=== PATIENT | female | born 1980 | race African-American/Black ===

== ENCOUNTER 2019-12-13 21:25 | Emergency (ER) | payer SELFPAY ==
[~2019-12-13] VITALS: Ht 177 cm; Wt 77.0 kg
--- NOTE | 2019-12-13 21:42 | ED General ---
General Stated Complaint: VOMITTING Source of Information: Patient Exam Limitations: No Limitations (KARL LUCAS APRN) History of Present Illness Date Seen by Provider: Dec 13, 2019 Time Seen by Provider: 21:38 Initial Comments To ER by EMS with reports of nausea vomiting and diffuse abdominal pain and cramping. He was diagnosed last month and a different facility with hyperemesis cannabinoids syndrome. She states that she didn't believe them at first, she drove [employer] over the weekend and bought a vape pen with marijuana in it. Beginning yesterday she developed some uncontrollable nausea and vomiting. EMS gave 4 mg of Zofran in route to the hospital, nausea is still present but better, abdominal pain persists and is diffuse and not well localized. She states that hot showers help with this pain/nausea and vomiting. She is currently living out of her van. Timing/Duration: 1-2 Days Severity: Moderate, Severe Associated Systoms: Nausea/Vomiting (KARL LUCAS APRN) Allergies and Home Medications Allergies Coded Allergies: promethazine (Verified Allergy, Unknown, 12/13/19) Patient Home Medication List Home Medication List Reviewed: Yes (KARL LUCAS APRN) Review of Systems Review of Systems Constitutional: see HPI EENTM: see HPI Respiratory: no symptoms reported Cardiovascular: no symptoms reported Gastrointestinal: abdominal pain, nausea, vomiting Genitourinary: no symptoms reported Musculoskeletal: no symptoms reported Skin: no symptoms reported Psychiatric/Neurological: No Symptoms Reported Hematologic/Lymphatic: No Symptoms Reported (KARL LUCAS APRN) Past Twgywyw-Svnwtm-Opgbfe Hx Patient Social History Recent Foreign Travel: No Contact w/Someone Who Travel: No (KARL LUCAS APRN) Physical Exam Vital Signs Vital Signs - First Documented 12/13/19 21:25 Temp 37.0 Pulse 51 Resp 17 B/P (MAP) 182/104 (130) (WINTER BLOUNT MD) Vital Signs Capillary Refill : (KARL LUCAS APRN) Height, Weight, BMI Height: '" Weight: lbs. oz. kg; BMI Method: General Appearance: No Apparent Distress, WD/WN Eyes: Bilateral Eye Normal Inspection, Bilateral Eye PERRL, Bilateral Eye EOMI Respiratory: Lungs Clear, Normal Breath Sounds, No Accessory Muscle Use, No Res piratory Distress Cardiovascular: Regular Rate, Rhythm, Normal Peripheral Pulses Gastrointestinal: Non Tender, Soft Extremity: Normal Capillary Refill, Normal Inspection Neurologic/Psychiatric: Alert, Oriented x3, No Motor/Sensory Deficits Skin: Normal Color, Warm/Dry (KARL LUCAS APRN) Progress/Results/Core Measures Suspected Sepsis SIRS Temperature: Pulse: Respiratory Rate: Laboratory Tests 12/13/19 21:30: White Blood Count 7.5 Blood Pressure / Mean: Laboratory Tests 12/13/19 21:30: Creatinine 0.81, Platelet Count 230, Total Bilirubin 0.5 (KARL LUCAS APRN) Results/Orders Lab Results Laboratory Tests Test 12/13/19 21:30 12/13/19 23:00 Range/Units White Blood Count 7.5 4.3-11.0 10^3/uL Red Blood Count 4.05 L 4.35-5.85 10^6/uL Hemoglobin 13.5 11.5-16.0 G/DL Hematocrit 39 35-52 % Mean Corpuscular Volume 97 80-99 FL Mean Corpuscular Hemoglobin 33 25-34 PG Mean Corpuscular Hemoglobin Concent 35 32-36 G/DL Red Cell Distribution Width 12.2 10.0-14.5 % Platelet Count 230 130-400 10^3/uL Mean Platelet Volume 10.0 7.4-10.4 FL Neutrophils (%) (Auto) 75 42-75 % Lymphocytes (%) (Auto) 16 12-44 % Monocytes (%) (Auto) 9 0-12 % Eosinophils (%) (Auto) 0 0-10 % Basophils (%) (Auto) 0 0-10 % Neutrophils # (Auto) 5.6 1.8-7.8 X 10^3 Lymphocytes # (Auto) 1.2 1.0-4.0 X 10^3 Monocytes # (Auto) 0.7 0.0-1.0 X 10^3 Eosinophils # (Auto) 0.0 0.0-0.3 10^3/uL Basophils # (Auto) 0.0 0.0-0.1 10^3/uL Sodium Level 135 135-145 MMOL/L Potassium Level 3.5 L 3.6-5.0 MMOL/L Chloride Level 102 98-107 MMOL/L Carbon Dioxide Level 19 L 21-32 MMOL/L Anion Gap 14 5-14 MMOL/L Blood Urea Nitrogen 8 7-18 MG/DL Creatinine 0.81 0.60-1.30 MG/DL Estimat Glomerular Filtration Rate > 60 BUN/Creatinine Ratio 10 Glucose Level 104 70-105 MG/DL Calcium Level 8.9 8.5-10.1 MG/DL Corrected Calcium 8.8 8.5-10.1 MG/DL Total Bilirubin 0.5 0.1-1.0 MG/DL Aspartate Amino Transf (AST/SGOT) 23 5-34 U/L Alanine Aminotransferase (ALT/SGPT) 21 0-55 U/L Alkaline Phosphatase 58 40-136 U/L Total Protein 7.0 6.4-8.2 GM/DL Albumin 4.1 3.2-4.5 GM/DL Lipase 15 8-78 U/L Serum Test, Qualitative NEGATIVE NEGATIVE Urine Color YELLOW Urine Clarity SL CLOUDY Urine pH 6.5 5-9 Urine Specific [place] 1.025 H 1.016-1.022 Urine Protein 1+ H NEGATIVE Urine Glucose (UA) NEGATIVE NEGATIVE Urine Ketones 1+ H NEGATIVE Urine Nitrite NEGATIVE NEGATIVE Urine Bilirubin 1+ H NEGATIVE Urine Urobilinogen 1.0 < = 1.0 MG/DL Urine Leukocyte Esterase NEGATIVE NEGATIVE Urine RBC (Auto) 3+ H NEGATIVE Urine RBC RARE /HPF Urine WBC RARE /HPF Urine Squamous Epithelial Cells 2-5 /HPF Urine Crystals NONE /LPF Urine Bacteria TRACE /HPF Urine Casts NONE /LPF Urine Mucus LARGE H /LPF Urine Culture Indicated NO Urine Opiates Screen NEGATIVE NEGATIVE Urine Oxycodone Screen NEGATIVE NEGATIVE Urine Methadone Screen NEGATIVE NEGATIVE Urine Propoxyphene Screen NEGATIVE NEGATIVE Urine Barbiturates Screen NEGATIVE NEGATIVE Ur Tricyclic Antidepressants Screen NEGATIVE NEGATIVE Urine Phencyclidine Screen NEGATIVE NEGATIVE Urine Amphetamines Screen NEGATIVE NEGATIVE Urine Methamphetamines Screen NEGATIVE NEGATIVE Urine Benzodiazepines Screen NEGATIVE NEGATIVE Urine Cocaine Screen NEGATIVE NEGATIVE Urine Cannabinoids Screen POSITIVE H NEGATIVE (WINTER BLOUNT MD) Medications Given in ED Current Medications Medications Dose Ordered Sig/Christy Route Start Time Stop Time Status Last Admin Dose Admin Diphenhydramine HCl 25 mg ONCE ONCE IVP 12/13/19 21:45 12/13/19 21:46 DC 12/13/19 21:41 25 MG Haloperidol Lactate 5 mg ONCE ONCE IV 12/13/19 21:45 12/13/19 21:46 DC 12/13/19 21:41 5 MG (WINTER BLOUNT MD) Vital Signs/I&O 12/13/19 21:25 Temp 37.0 Pulse 51 Resp 17 B/P (MAP) 182/104 (130) (WINTER BLOUNT MD) Vital Signs/I&O Capillary Refill : (KARL LUCAS APRN) Progress Note : Progress Note 230: I have assumed care of the patient from Karl Lucas APRN pending UA which has been obtained. Patient is doing better with LR running currently. Monitor patient. 2325: Still without vomiting. UA resulted with no concerning findings. We will give prescription for ondansetron per her request. I did rediscuss with her the need to limit marijuana/THC use. She verbalizes understanding. Discharged home with return precautions. Patient verbalize understanding inst ructions and agreement with plan. (WINTER BLOUNT MD) Departure Communication (Admissions) 2207-states she is feeling "a lot better". Dr. Blount will finish up her care. We'll give one more bag of fluids then discharged to home. (KARL LUCAS APRN) Impression Primary Impression: Cannabinoid hyperemesis syndrome Disposition: HOME, SELF-CARE Condition: Improved Departure-Patient Inst. Decision time for Depature: 22:09 (KARL LUCAS APRN) Referrals: NO,LOCAL PHYSICIAN (PCP) Primary Care Physician Patient Instructions: Marijuana Use and Addiction, Nausea and Vomiting, Adult (DC) Add. Discharge Instructions: You should limit or discontinue marijuana use as this will increase your risk of these vomiting episodes. Clear liquid diet for the next 12-24 hours and then advance as tolerated. Follow-up with your DrLuciano in a few days for recheck. Return for worse pain, fever, vomiting, weakness, breathing problems or other as needed. Scripts Ondansetron (Ondansetron Odt) 4 Mg Tab.rapdis 4 MG PO Q6H PRN for NAUSEA/VOMITING, #12 TAB 0 Refills Prov: WINTER BLOUNT MD 12/13/19 KARL LUCAS APRN Dec 13, 2019 21:42 WINTER BLOUNT MD Dec 13, 2019 23:29
[2019-12-13 21:44] LABS: BASOPHILS % (AUTO) 0 % (0-10); EOSINOPHILS % (AUTO) 0 % (0-10); HEMATOCRIT 39 % (35-52); HEMOGLOBIN 13.5 G/DL (11.5-16.0); LYMPHOCYTES # (AUTO) 1.2 X 10^3 (1.0-4.0); LYMPHOCYTES % (AUTO) 16 % (12-44); MEAN CORPUSCULAR HEMOGLOBIN 33 PG (25-34); MEAN CORPUSCULAR HGB CONC 35 G/DL (32-36); MEAN CORPUSCULAR VOLUME 97 FL (80-99); MONOCYTES # (AUTO) 0.7 X 10^3 (0.0-1.0); MONOCYTES % (AUTO) 9 % (0-12); NEUTROPHILS # (AUTO) 5.6 X 10^3 (1.8-7.8); NEUTROPHILS % (AUTO) 75 % (42-75); PLATELET COUNT 230 10^3/uL (130-400); RED CELL DISTRIBUTION WIDTH 12.2 % (10.0-14.5); WHITE BLOOD COUNT 7.5 10^3/uL (4.3-11.0)
[2019-12-13] MEDS ORDERED: diphenhydrAMINE 50 MG/ML INJ (BENADRYL) IVP ONE (21:45)
[2019-12-13] MEDS ORDERED: HALOPERIDOL 5 MG/ML (HALDOL) VIAL IV ONE (21:45)
--- NOTE | 2019-12-13 21:45 | NUR ---
pt denies being able to void at this time.
[2019-12-13 21:55] LABS: ALBUMIN 4.1 GM/DL (3.2-4.5)
[2019-12-13 21:56] LABS: CHLORIDE 102 MMOL/L (98-107); POTASSIUM 3.5 MMOL/L (3.6-5.0); SODIUM 135 MMOL/L (135-145)
[2019-12-13 21:57] LABS: CALCIUM 8.9 MG/DL (8.5-10.1)
[2019-12-13 21:58] LABS: GLUCOSE 104 MG/DL (70-105)
[2019-12-13 21:59] LABS: CARBON DIOXIDE 19 MMOL/L (21-32)
[2019-12-13 22:00] LABS: BILIRUBIN,TOTAL 0.5 MG/DL (0.1-1.0)
[2019-12-13 22:01] LABS: ALKALINE PHOSPHATASE 58 U/L (40-136)
[2019-12-13 22:02] LABS: CREATININE SERUM 0.81 MG/DL (0.60-1.30); GFR ESTIMATED > 60
[2019-12-13 22:03] LABS: BUN/CREATININE RATIO 10
[2019-12-13 22:04] LABS: ALANINE AMINOTRANSFERASE 21 U/L (0-55)
[2019-12-13 22:05] LABS: LIPASE 15 U/L (8-78)
--- NOTE | 2019-12-13 22:14 | NUR ---
pt denies being able to void at this time.
[2019-12-13] MEDS ORDERED: LACTATED RINGERS 1,000 ML IV SCH (22:15)
[2019-12-13 23:08] LABS: CLARITY,URINE SL CLOUDY; COLOR,URINE YELLOW; GLUCOSE, URINE (UA) NEGATIVE (NEGATIVE); KETONES,URINE 1+ (NEGATIVE); LEUKOCYTE ESTERASE ,URINE NEGATIVE (NEGATIVE); NITRITE,URINE NEGATIVE (NEGATIVE); PH,URINE 6.5 (5-9); PROTEIN,URINE 1+ (NEGATIVE)
[2019-12-13 23:14] LABS: BACTERIA,URINE TRACE /HPF; RBC,URINE RARE /HPF; WBC,URINE RARE /HPF
[2019-12-13 23:15] LABS: BILIRUBIN,URINE 1+ (NEGATIVE)
[2019-12-13 23:21] LABS: AMPHETAMINE SCREEN, URINE NEGATIVE (NEGATIVE); BARBITURATE SCREEN URINE NEGATIVE (NEGATIVE); BENZODIAZEPINES SCREEN URINE NEGATIVE (NEGATIVE); CANNABINOID SCREEN, URINE POSITIVE (NEGATIVE); COCAINE SCREEN URINE NEGATIVE (NEGATIVE); METHADONE STAT NEGATIVE (NEGATIVE); METHAMPHETAMINE SCREEN URINE S NEGATIVE (NEGATIVE); OPIATE SCREEN URINE NEGATIVE (NEGATIVE); OXYCODONE STAT NEGATIVE (NEGATIVE); PROPOXYPHENE STAT NEGATIVE (NEGATIVE); TRICYCLIC ANTIDEPRESSANTS SCRE NEGATIVE (NEGATIVE)
[2019-12-13] MEDS ORDERED: ONDA4TAB11 PO (23:29)
[2019-12-13 23:31] VITALS: BP 163/95
== END 2019-12-13 23:31 | disposition home or self-care (01) ==
LOC: ER 21:31
DX: R11.2 Nausea with vomiting, unspecified (principal); F12.90 Cannabis use, unspecified, uncomplicated
CPT/HCPCS: 36415; 80053; 80306; 81000; 83690; 84703; 85025; 96361; 96374; 96375